=== PATIENT | female | born 1950 | race Two or more races ===

== ENCOUNTER 2018-08-26 13:30 | Inpatient (IN) | payer OTHER ==
[~2018-08-26] VITALS: Ht 162.6 cm; Wt 83.9 kg
[2018-08-27] MEDS ORDERED: NORVASC5 MG PO (07:06)
[2018-08-27] MEDS ORDERED: FORTAMET1000 MG PO (07:07)
[2018-08-27] MEDS ORDERED: SYNTHROID125 MCG PO (07:07)
[2018-08-27] MEDS ORDERED: PROSAC PO (07:08)
[2018-08-27] MEDS ORDERED: CATAFLAN PO (07:08)
[2018-08-27] MEDS ORDERED: CLONIDINE1 EAC1 PO (07:08)
[2018-08-27] MEDS ORDERED: TRICOR48 MG PO (07:09)
[2018-08-27] MEDS ORDERED: CARAFATE1 GM/10 ML PO (07:09)
[2018-08-27] MEDS ORDERED: LISINOPRIL20 MG PO (07:09)
[2018-08-27] MEDS ORDERED: [UNRECOGNIZED DRUG - OTHER] PO (07:11)
[2018-09-03] MEDS ORDERED: DICLOFENAC SOD100 MG PO (09:11)
[2018-09-03] MEDS ORDERED: PROZAC10 MG PO (09:11)
[2018-09-03] MEDS ORDERED: ESTAZOLAM2 MG PO (09:12)
[2018-09-04] MEDS ORDERED: GABAPENTIN800 MG PO (08:01)
[2018-09-04] MEDS ORDERED: DOCUSATE SODIU100 MG PO (08:01)
[2018-09-04] MEDS ORDERED: PERCOCET 5-3251 EACH PO (08:03)
[2018-09-04] MEDS ORDERED: CLONAZEPAM1 MG PO (08:03)
[2018-09-04] MEDS ORDERED: AMOX-CLAV 875-1 EACH PO (08:03)
[2018-09-04] MEDS ORDERED: ZOFRAN ODT4 MG PO (12:18)
== END 2018-09-05 17:25 | disposition home or self-care (01) | DRG 455 ==
LOC: O/R 09-03 06:44 → SURG 09-03 06:44 → SURH 09-03 13:30 → SURG 09-03 20:06 → SURH 09-03 20:30 → SURG 09-05 17:25
PROVIDERS: Orthopaedic Surgery Orthopaedic Surgery of the Spine
PROC: 0SG0071 Fusion of Lumbar Vertebral Joint with Autologous Tissue Substitute, Posterior Approach, Posterior Column, Open Approach (ICD-10-PCS; 2018-09-03)
PROC: 0ST40ZZ Resection of Lumbosacral Disc, Open Approach (ICD-10-PCS; 2018-09-03)
PROC: 0SG30AJ Fusion of Lumbosacral Joint with Interbody Fusion Device, Posterior Approach, Anterior Column, Open Approach (ICD-10-PCS; 2018-09-03)
PROC: 07DS3ZZ Extraction of Vertebral Bone Marrow, Percutaneous Approach (ICD-10-PCS; 2018-09-03)
PROC: 0SG30A0 Fusion of Lumbosacral Joint with Interbody Fusion Device, Anterior Approach, Anterior Column, Open Approach (ICD-10-PCS; principal; 2018-09-03 20:30)
DX: M47.27 Other spondylosis with radiculopathy, lumbosacral region (principal); M48.07 Spinal stenosis, lumbosacral region; M41.57 Other secondary scoliosis, lumbosacral region; M51.17 Intervertebral disc disorders with radiculopathy, lumbosacral region; I10 Essential (primary) hypertension; E11.9 Type 2 diabetes mellitus without complications

== ENCOUNTER → 2020-08-17 | Outpatient (CLI) | payer OTHER ==
[~2020-08-17] MED LIST: AMOX-CLAV 875-1 EACH PO; CARAFATE1 GM/10 ML PO; CATAFLAN PO; CLONAZEPAM1 MG PO; CLONIDINE1 EAC1 PO; DICLOFENAC SOD100 MG PO; DOCUSATE SODIU100 MG PO; ESTAZOLAM2 MG PO; FORTAMET1000 MG PO; GABAPENTIN800 MG PO; LISINOPRIL20 MG PO; NORVASC5 MG PO; PERCOCET 5-3251 EACH PO; PROSAC PO; PROZAC10 MG PO; SYNTHROID125 MCG PO; TRICOR48 MG PO; ZOFRAN ODT4 MG PO; [UNRECOGNIZED DRUG - OTHER] PO
== END | disposition home or self-care (01) ==
LOC: RAD 12:00
PROVIDERS: ATTEND Orthopaedic Surgery Orthopaedic Surgery of the Spine
DX: M51.36 Other intervertebral disc degeneration, lumbar region (principal); Z98.1 Arthrodesis status

== ENCOUNTER 2020-09-05 12:23 | Outpatient (CLI) | payer OTHER | END 2020-09-05 12:29 | disposition home or self-care (01) | LOC: RAD 12:23 | PROVIDERS: ATTEND Specialist | DX: M17.12 Unilateral primary osteoarthritis, left knee (principal); M25.561 Pain in right knee; M25.562 Pain in left knee; M25.551 Pain in right hip ==

== ENCOUNTER → 2020-09-28 | Outpatient (CLI) | payer OTHER | END | disposition home or self-care (01) | LOC: MAMO-SONO 09:36 | PROVIDERS: ATTEND Internal Medicine | DX: Z12.31 Encounter for screening mammogram for malignant neoplasm of breast (principal); N64.59 Other signs and symptoms in breast ==

== ENCOUNTER 2021-06-29 10:42 | Outpatient (CLI) | payer OTHER | END 2021-06-29 10:47 | disposition home or self-care (01) | LOC: TOM 10:42 | PROVIDERS: ATTEND Obstetrics & Gynecology | DX: R10.84 Generalized abdominal pain (principal); R10.2 Pelvic and perineal pain; K57.90 Diverticulosis of intestine, part unspecified, without perforation or abscess without bleeding; M25.511 Pain in right shoulder; N81.6 Rectocele ==

== ENCOUNTER 2022-01-01 09:45 | Outpatient (CLI) | payer OTHER | END 2022-01-01 09:46 | disposition home or self-care (01) | LOC: LAB 09:45 | DX: E78.2 Mixed hyperlipidemia (principal); E11.42 Type 2 diabetes mellitus with diabetic polyneuropathy; E11.69 Type 2 diabetes mellitus with other specified complication; E03.8 Other specified hypothyroidism; N18.2 Chronic kidney disease, stage 2 (mild) ==

== ENCOUNTER 2022-01-24 07:16 | Outpatient (CLI) | payer OTHER | END 2022-01-24 07:17 | disposition home or self-care (01) | LOC: NUCLEAR 07:16 | DX: M85.80 Other specified disorders of bone density and structure, unspecified site (principal) ==

== ENCOUNTER 2022-01-24 10:57 | Outpatient (CLI) | payer OTHER | END 2022-01-24 11:05 | disposition home or self-care (01) | LOC: RAD 10:57 | PROVIDERS: ATTEND Orthopaedic Surgery Orthopaedic Surgery of the Spine | DX: R10.9 Unspecified abdominal pain (principal); N20.0 Calculus of kidney; Z12.31 Encounter for screening mammogram for malignant neoplasm of breast; Z98.82 Breast implant status | CPT/HCPCS: 72148 ==

== ENCOUNTER 2022-04-20 07:25 | Outpatient (CLI) | payer OTHER | END 2022-04-20 07:26 | disposition home or self-care (01) | LOC: NUCLEAR 07:25 | PROVIDERS: ATTEND Internal Medicine Rheumatology | DX: M05.79 Rheumatoid arthritis with rheumatoid factor of multiple sites without organ or systems involvement (principal); M87.059 Idiopathic aseptic necrosis of unspecified femur | CPT/HCPCS: 78315; A9503 ==